=== PATIENT | female | born 1975 | race Caucasian/White ===

== ENCOUNTER 2019-07-08 15:30 | Emergency (ER) | payer SELFPAY ==
--- NOTE | 2019-07-08 15:36 | PDOC ---
Rapid Medical Evaluation Time Seen by Provider: 07/08/19 15:33 Medical Evaluation: Allergies Allergy/AdvReac Type Severity Reaction Status Date / Time No Known Allergies Allergy Verified 11/23/14 17:40 07/08/19 15:34 I have performed a brief in-person evaluation of this patient. The patient presents with a chief complaint of: abd pain, 7 weeks Pertinent physical exam findings:stable and in NAD, non-focal I have ordered the following:labs The patient will proceed to the ED for further evaluation.
[2019-07-08 15:37] VITALS: BP 128/65; PULSE 77; TEMP 98.2; BMI 34.7
[2019-07-08 16:09] LABS: EOS % 1.3 % (0-4.5); HEMATOCRIT 40.7 % (32.4-45.2); HEMOGLOBIN 13.2 GM/dL (10.7-15.3); LYMPH % 25.1 % (8-40); MCH 28.2 pg (25.7-33.7); MCHC 32.5 g/dl (32.0-36.0); MEAN PLT VOLUME 7.7 fl (7.5-11.1); MONO % 5.5 % (3.8-10.2); NEUT % 67.1 % (42.8-82.8); PLATELET COUNT 287 K/MM3 (134-434); RBC 4.67 M/mm3 (3.60-5.2); RDW 13.6 % (11.6-15.6); WHITE BLOOD COUNT 9.7 K/mm3 (4.0-10.0)
[2019-07-08 16:10] LABS: URINE APPEARANCE CLEAR; URINE BILIRUBIN NEGATIVE (NEGATIVE); URINE COLOR YELLOW; URINE GLUCOSE (UA) NEGATIVE (NEGATIVE); URINE KETONE NEGATIVE (NEGATIVE); URINE LEUK ESTERASE NEGATIVE (NEGATIVE); URINE NITRITE NEGATIVE (NEGATIVE); URINE PROTEIN NEGATIVE (NEGATIVE); URINE UROBILINOGEN 0.2 mg/dL (0.2-1.0)
[2019-07-08] MEDS ORDERED: ACETAMINOPHEN 325 MG TABLET (FP) PO ONE (16:24)
[2019-07-08] MEDS ORDERED: ACETAMINOPHEN 325 MG TABLET (FP) ONE (16:35)
--- NOTE | 2019-07-08 16:39 | PDOC ---
*Physical Exam - Vital Signs Last Vital Signs Temp Pulse Resp BP Pulse Ox 98.2 F 77 16 128/65 99 07/08/19 15:34 07/08/19 15:34 07/08/19 15:34 07/08/19 15:34 07/08/19 15:34 ED Treatment Course - LABORATORY CBC & Chemistry Diagram: 07/08/19 15:46 07/08/19 15:46 - ADDITIONAL ORDERS Additional order review: Laboratory Results 07/08/19 15:46 Urine Color Yellow Urine Appearance Clear Urine pH 6.0 Ur Specific [place] 1.005 L Urine Protein Negative Urine Glucose (UA) Negative Urine Ketones Negative Urine Blood Negative Urine Nitrite Negative Urine Bilirubin Negative Urine Urobilinogen 0.2 Ur Leukocyte Esterase Negative 07/08/19 15:46 RBC 4.67 MCV 87.0 MCHC 32.5 RDW 13.6 MPV 7.7 D Neutrophils % 67.1 Lymphocytes % 25.1 D Monocytes % 5.5 Eosinophils % 1.3 Basophils % 1.0 - Medications Given in the ED: ED Medications Discontinued Medications Generic Name Dose Route Start Last Admin Trade Name Jael PRN Reason Stop Dose Admin Acetaminophen 975 mg 07/08/19 16:24 07/08/19 16:38 Tylenol - PO 07/08/19 16:25 975 mg ONCE ONE Administration Medical Decision Making - Medical Decision Making 07/08/19 16:39 Pt seen by Midlevel Provider under my direct supervision I was available for consultation on this patient Ancillary studies reviewed Laboratory Tests 07/08/19 07/08/19 07/08/19 15:46 15:46 15:46 WBC 9.7 Hgb 13.2 Hct 40.7 D Plt Count 287 D BUN 8.0 Creatinine 0.6 Urine Glucose (UA) Negative Urine Ketones Negative Urine Blood Negative Ur Leukocyte Esterase Negative U/S - IUP, 7 weeks, FHR 146bpm I agree with plan as outlined by Midlevel Provider 07/08/19 17:03 Discharge - Discharge Information Problems reviewed: Yes Clinical Impression/Diagnosis: Abdominal pain in Qualifiers: Trimester: first trimester Qualified Code(s): O26.891 - Other specified related conditions, first trimester Condition: Stable Disposition: HOME - Follow up/Referral Referrals: Vanna Capps DO [Staff Physician] - 2 Days - Patient Discharge Instructions Patient Printed Discharge Instructions: DI for Abdominal Pain -- Early Additional Instructions: Thank you for choosing [facility]. It was a pleasure taking care of you. Your ultrasound showed evidence of at 7 weeks. You may take Tylenol 650 mg every 6 hours by mouth as needed for mild to moderate pain. Do not take more than 4000 mg of Tylenol in 1 day. Please follow-up with OB Dr. Capps. Return to the Emergency Department if your symptoms worsen or persist, you have fever, shortness of breath, chest pain, severe abdominal pain, vomiting, vaginal bleeding or other concerning symptoms. - Post Discharge Activity
[2019-07-08 16:46] LABS: ALBUMIN 3.4 g/dl (3.4-5.0); BILIRUBIN,TOTAL 0.6 mg/dL (0.2-1); CALCIUM 9.2 mg/dL (8.5-10.1); CREATININE 0.6 mg/dL (0.55-1.3); POTASSIUM 3.9 mmol/L (3.5-5.1); TOT PROT 7.2 g/dl (6.4-8.2)
--- NOTE | 2019-07-08 17:17 | PDOC ---
History of Present Illness - General Chief Complaint: Pain, Acute Stated Complaint: LOWER BACK PAIN/ ABD PAIN 7WKS PRG Time Seen by Provider: 07/08/19 15:33 History Source: Patient Exam Limitations: No Limitations Past History - Past Medical History Allergies/Adverse Reactions: Allergies Allergy/AdvReac Type Severity Reaction Status Date / Time No Known Allergies Allergy Verified 07/08/19 15:36 Home Medications: Ambulatory Orders Vit/Iron Fumarate/FA [ Tablet] 1 tablet PO DAILY 06/28/15 Acetaminophen [Tylenol .Regular Strength -] 650 mg PO Q3H PRN #0 tablet Ferrous Sulfate [Feosol] 325 mg PO BID #60 ud 06/30/15 Ibuprofen [Motrin -] 200 mg PO Q4H PRN #0 tablet 06/30/15 Vitamins (Sjr) - 1 tab PO DAILY #30 tablet 06/30/15 Asthma: No Cancer: No Cardiac Disorders: No COPD: No Diabetes: Yes (gestational diabetes- diet controlled) HTN: No Seizures: No Thyroid Disease: No - Surgical History Cholecystectomy: Yes - Psycho Social/Smoking Cessation Hx Smoking History: Never smoked Have you smoked in the past 12 months: No Hx Alcohol Use: Yes Drug/Substance Use Hx: No Substance Use Type: None Hx Substance Use Treatment: No *Physical Exam - Vital Signs Last Vital Signs Temp Pulse Resp BP Pulse Ox 98.2 F 77 16 128/65 99 07/08/19 15:34 07/08/19 15:34 07/08/19 15:34 07/08/19 15:34 07/08/19 15:34 - Physical Exam General Appearance: No: Apparent Distress Respiratory/Chest: positive: Lungs Clear, Normal Breath Sounds. negative: Respiratory Distress Cardiovascular: positive: Regular Rhythm, Regular Rate, S1, S2. negative: Murmur Female Pelvic Exam: negative: adnexal tenderness Gastrointestinal/Abdominal: positive: Normal Bowel Sounds, Soft. negative: Tender, Distended, Guarding, Rebound Neurologic: positive: Alert, Normal Mood/Affect ED Treatment Course - LABORATORY CBC & Chemistry Diagram: 07/08/19 15:46 07/08/19 15:46 - ADDITIONAL ORDERS Additional order review: Laboratory Results 07/08/19 07/08/19 07/08/19 15:46 15:46 15:46 Sodium 138 Potassium 3.9 Chloride 106 Carbon Dioxide 25 Anion Gap 7 L BUN 8.0 Creatinine 0.6 Est GFR (CKD-EPI)AfAm 130.30 Est GFR (CKD-EPI)NonAf 112.42 Random Glucose 115 H Calcium 9.2 Total Bilirubin 0.6 AST 19 ALT 37 Alkaline Phosphatase 85 Total Protein 7.2 Albumin 3.4 Beta HCG, Quant 76896.8 Urine Color Yellow Urine Appearance Clear Urine pH 6.0 Ur Specific [place] 1.005 L Urine Protein Negative Urine Glucose (UA) Negative Urine Ketones Negative Urine Blood Negative Urine Nitrite Negative Urine Bilirubin Negative Urine Urobilinogen 0.2 Ur Leukocyte Esterase Negative Blood Type O POSITIVE Antibody Screen Negative 07/08/19 15:46 RBC 4.67 MCV 87.0 MCHC 32.5 RDW 13.6 MPV 7.7 D Neutrophils % 67.1 Lymphocytes % 25.1 D Monocytes % 5.5 Eosinophils % 1.3 Basophils % 1.0 - RADIOLOGY Radiology Studies Ordered: Category Date Time Status <14WKS US [US] Stat Ultrasound 07/08/19 16:24 Taken - Medications Given in the ED: ED Medications Discontinued Medications Generic Name Dose Route Start Last Admin Trade Name Freq PRN Reason Stop Dose Admin Acetaminophen 975 mg 07/08/19 16:24 07/08/19 16:38 Tylenol - PO 07/08/19 16:25 975 mg ONCE ONE Administration Medical Decision Making - Medical Decision Making 44-year-old female currently 7 weeks (history of one ) presents with complaint of lower abdominal and back pain for 1 week. Patient went to [facility] 3 days ago and said they did ultrasound told everything was fine. She was given Tylenol for pain. Also mentions slight nausea. Denies fevers, shortness of breath, chest pain, vomiting, diarrhea, vaginal bleeding, urinary complaints. Her last normal menstrual period was May 20. We will rule out ectopic Less suspicious for miscarriage given no vaginal bleeding Plan labs, pelvic ultrasound, Tylenol for pain 07/08/19 17:15 Labs reviewed and unremarkable Pelvic ultrasound shows IUP at 7 weeks with heart rate noted Stable for discharge 07/08/19 17:36 Discharge - Discharge Information Problems reviewed: Yes Clinical Impression/Diagnosis: Abdominal pain in Qualifiers: Trimester: first trimester Qualified Code(s): O26.891 - Other specified related conditions, first trimester; R10.9 - Unspecified abdominal pain Condition: Stable Disposition: HOME - Admission No - Additional Discharge Information Prescription Drug Monitoring Program (I-STOP) results: I-STOP not reviewed - Follow up/Referral Referrals: Vanna Capps DO [Staff Physician] - 2 Days - Patient Discharge Instructions Patient Printed Discharge Instructions: DI for Abdominal Pain -- Early Additional Instructions: Thank you for choosing [facility]. It was a pleasure taking care of you. Your ultrasound showed evidence of at 7 weeks. You may take Tylenol 650 mg every 6 hours by mouth as needed for mild to moderate pain. Do not take more than 4000 mg of Tylenol in 1 day. Please follow-up with OB Dr. Capps. Return to the Emergency Department if your symptoms worsen or persist, you have fever, shortness of breath, chest pain, severe abdominal pain, vomiting, vaginal bleeding or other concerning symptoms. - Post Discharge Activity
== END 2019-07-08 17:38 | disposition home or self-care (01) ==
LOC: JER 15:30
DX: O26.891 Other specified pregnancy related conditions, first trimester (principal); Z3A.01 Less than 8 weeks gestation of pregnancy
CPT/HCPCS: 36415; 76801-TC; 80053; 81003; 84702; 85025; 86850; 86900; 86901; 99281-25